=== PATIENT | male | born 1980 | race Caucasian/White ===

== ENCOUNTER 2023-12-12 09:40 | Outpatient (AMB) | payer OTHER, SELFPAY ==
--- NOTE | 2023-12-12 09:45 | A.SPINEOV_ITS ---
Intake Visit Reasons: LBP/Left foot drop Intake Note: Mr. Hurt is here today c/o low back pain and Left leg discomfort. Director [facility] Required: No Assessment & Plan Assessment & Plan (1) Footdrop: Code(s): M21.379 - Foot drop, unspecified foot Category: Medical Plan Dear Ben, Thank you for referring MR Hurt to our office today. He is a 43 year old male with previous history of lumbar surgery about 8 years ago for leg pain and foot weakness done at [facility], who p/w new onset footdrop that started about 2 months ago. It was initially associated with about 2 days of back pain and leg pain, that resolved on their own. HE has been left with the footdrop however and subsuquent MRI at [place] showed evidence of herniated disk at L4-5 amongst other changes and he was referred here today to see us. He denies any numbness. He believes that the foot weakness maybe getting slightly better but it is still persistent. He believes he might be scheduled for an upcoming injection. PMH: He is a diabetic, on his own admission, he is poorly controlled and does not check his blood sugars. His last A1c was around 9. He was recently started on insulin in addition to metformin. He is also taking Trulicity. He has a urethral stricture in his due for what sounds like an upcoming procedure to help with that. He has battled with urinary retention because of this. Previous history of back surgery in the right finger surgery. Denies any issues with his heart, lungs, strokes, bleeding disorders, liver disease, kidney issues etc.. Social hx: He does not smoke, drink use any recreational drugs Medications: Insulin, he could not remember the name but it sounds like Lantus, Trulicity, Lipitor, metformin, Flomax and lisinopril Allergies: None Physical exam: Morbidly obese gentleman, 5 ft 10, 350 lb with a BMI of 50. His motor exam reveals he has weakness of his left iliopsoas which I would rate as 4-5. Quadriceps strength is normal. He has weakness of his left dorsiflexion which I would rate as 4-5 and almost 0 function of his left extensor hallucis longus. Reflexes are diffusely absent bilateral lower extremities. Imaging review: Lumbar MRI done at [place] on November 21 reveals what looks like postsurgical changes at L4-5 and L5-S1 on the left. The defect at L5-S1 is more obvious. There is what looks like possible new disc herniation or recurrent disc herniation at L4-5 on the left. The radiologist reports that it is smaller than what it was compared to the last MRI in 2018, but I do not have the images to review, I was unable to download them from the website. There are lesser degenerative changes at L5-S1 with postsurgical scarring but I do not see any residual nerve compression. There is varying degrees of foraminal stenosis. Impression: 43-year-old male presents for evaluation of left foot weakness. He has a history of a previous disc herniation with foot weakness and had an operation done about 8 years ago at [facility]. His symptoms started about 2 months ago and worse associated with acute pain primarily in his back for about 2 days and that went away. He has a multiple overlapping myotomes with the distribution of weakness including his hip flexor, tibialis and extensor hallucis longus. His MRI shows that he has a herniated disc at L4-5 on the left. The interesting part is that he has no pain shooting down the leg. I think there is too possibilities were dealing with here. One, is that he has a herniated disc that is resolving itself and the pain in the leg went away but the nerve was injured with the initial herniation and the patient is dealing with the after effects of that. The other possibility is that he has a polyn europathy related to his poorly-controlled diabetes. He does have multiple overlapping myotomes involved so this is in the differential. I will send him for nerve conduction study at [facility] and we can re-evaluate. I did explain to him that unfortunately if this looks like it is strictly an L5 radiculopathy related to the disc herniation, that even with surgery, there is no guarantee the nerve would heal and that without pain shooting down his leg generally we would not have an indication for surgery. Thank you for allowing us to care for your patient. The total time spent with this visit with this patient was 45 minutes reviewing history, physical exam, lumbar imaging review, and implementation of treatment plan or further diagnostic testing Brian Springer MD,PhD [facility] Orders: Orders NE electromyogram (EMG) Today M21.379 - Foot drop, unspecified foot Coding Level of Care Code New Pt Level 4 (40679) Diagnoses Footdrop M21.379
== END 2023-12-12 10:30 | disposition home or self-care (01) ==
PROVIDERS: PCP Internal Medicine; Referring Provider Physician Assistant; Visit Provider Physician Assistant
DX: M21.379 Foot drop, unspecified foot (principal)
CPT/HCPCS: 99204

== ENCOUNTER → 2023-12-12 09:40 | Outpatient (BNVA) | payer OTHER, SELFPAY | PROVIDERS: PCP Internal Medicine; Visit Provider Physician Assistant ==